=== PATIENT | female | born 1995 | race Hispanic/Latino ===

== ENCOUNTER 2019-04-30 10:50 | Emergency (ER) | payer OTHER ==
--- NOTE | 2019-04-30 12:07 | EDM.PDOC ---
ED HPI GENERAL MEDICAL PROBLEM - General Chief Complaint: Skin Complaint Stated Complaint: SORE ON MOUTH Time Seen by Provider: 04/30/19 12:07 Source of Information: Reports: Patient History Limitations: Reports: No Limitations - History of Present Illness INITIAL COMMENTS - FREE TEXT/NARRATIVE: HISTORY AND PHYSICAL: History of present illness: Patient is a 24-year-old female presents to the ED with complaint of rash on her mouth. Patient states that she developed the rash 2 weeks ago, started out as small cracks at the corners of her mouth. She states in the past week the rash on the right corner of her mouth has worsened and she has developed swelling to the right lower jaw. She reports pain in to her teeth on the right lower mouth. She denies fevers, chills, nausea, vomiting. Review of systems: As per history of present illness and below otherwise all systems reviewed and negative. Past medical history: As per history of present illness and as reviewed below otherwise noncontributory. Surgical history: As per history of present illness and as reviewed below otherwise noncontributory. Social history: No reported history of drug or alcohol abuse. Family history: As per history of present illness and as reviewed below otherwise noncontributory. Physical exam: General: Patient sitting comfortably in no acute distress and nontoxic appearing HEENT: Dry fissures to the angles of the mouth. There is honey crusted colored rash to the right side of the mouth. Slight swelling to the right lower jaw. Pain to percussion of the right lower teeth without obvious abscess. Atraumatic , normocephalic, pupils reactive, negative for conjunctival pallor or scleral icterus, mucous membranes moist, throat clear, neck supple, nontender, trachea midline. No meningeal signs. Lungs: Clear to auscultation, breath sounds equal bilaterally, chest nontender. Heart: S1S2, regular, negative for clicks, rubs, or overt murmur. Abdomen: Soft, nondistended, nontender. Negative for masses or hepatosplenomegaly. Negative for costovertebral tenderness. No rigidity, rebound , guarding. Pelvis: Stable nontender. Genitourinary: Deferred. Rectal: Deferred. Extremities: Atraumatic, negative for cords or calf pain. Neurovascular unremarkable. Neuro: Awake, alert, oriented. Cranial nerves II through XII unremarkable. Cerebellum unremarkable. Motor and sensory unremarkable throughout. Exam nonfocal. Notes: Diagnostics: none Therapeutics: none Prescriptions: Clindamycin Impression: Impetigo, dentalgia Plan: Take antibiotic and use topical ointment as instructed Alternate Tylenol myself and as needed Follow up with primary care provider Return to ED as needed as discussed Definitive disposition and diagnosis as appropriate pending reevaluation and review of above. right mouth Pain Score (Numeric/FACES): 7 - Related Data Allergies Allergy/AdvReac Type Severity Reaction Status Date / Time No Known Allergies Allergy Verified 04/30/19 12:03 Home Meds: Home Meds Clindamycin HCl 300 mg PO QID 7 Days #28 capsule 04/30/19 [Rx] Mupirocin Oint [Bactroban Oint] 22 gm TOP TID #1 tube 04/30/19 [Rx] Past Medical History - Past Health History Medical/Surgical History: Denies Medical/Surgical History [employer] History: Reports: Social & Family History - Family History Family Medical History: Noncontributory - Tobacco Use Smoking Status *Q: Light Tobacco Smoker Years of Tobacco use: 0 Packs/Tins Daily: 0 - Recreational Drug Use Recreational Drug Use: No ED ROS GENERAL - Review of Systems Review Of Systems: Comprehensive ROS is negative, except as noted in HPI. ED EXAM, SKIN/RASH Exam: See Below (see dictation) Course - Vital Signs Last Recorded V/S: Last Vital Signs Temp Pulse 69 04/30/19 12:00 Resp 16 04/30/19 12:00 BP 149/89 H 04/30/19 12:00 Pulse Ox 99 04/30/19 12:00 Departure - Departure Time of Disposition: 12:12 Disposition: Home, Self-Care 01 Condition: Good Clinical Impression: Impetigo, Dentalgia - Discharge Information Prescriptions: Clindamycin HCl 300 mg PO QID 7 Days #28 capsule Mupirocin Oint [Bactroban Oint] 22 gm TOP TID #1 tube Instructions: Impetigo, Pediatric Referrals: PCP,None [Primary Care Provider] - Forms: ED Department Discharge Additional Instructions: The following information is given to patients seen in the emergency department who are being discharged to home. This information is to outline your options for follow-up care. We provide all patients seen in our emergency department with a follow-up referral. The need for follow-up, as well as the timing and circumstances, are variable depending upon the specifics of your emergency department visit. If you don't have a primary care physician on staff, we will provide you with a referral. We always advise you to contact your personal physician following an emergency department visit to inform them of the circumstance of the visit and for follow-up with them and/or the need for any referrals to a consulting specialist. The emergency department will also refer you to a specialist when appropriate. This referral assures that you have the opportunity for follow-up care with a specialist. All of these measure are taken in an effort to provide you with optimal care, which includes your follow-up. Under all circumstances we always encourage you to contact your private physician who remains a resource for coordinating your care. When calling for follow-up care, please make the office aware that this follow-up is from your recent emergency room visit. If for any reason you are refused follow-up, please contact the [facility] Emergency Department at and asked to speak to the emergency department charge nurse. [facility] [address] [place] [id number] [place] [address] Take antibiotic and use topical ointment as instructed Alternate Tylenol myself and as needed Follow up with primary care provider Return to ED as needed as discussed Sepsis Event Note - Evaluation Sepsis Screening Result: No Definite Risk - Focused Exam Vital Signs: Vital Signs Pulse Resp BP Pulse Ox 04/30/19 12:00 69 16 149/89 H 99 Date Exam was Performed: 04/30/19 Time Exam was Performed: 12:31
== END 2019-04-30 12:25 | disposition home or self-care (01) ==
LOC: MW.ED 10:50
DX: L01.00 Impetigo, unspecified (principal); K08.89 Other specified disorders of teeth and supporting structures; F17.210 Nicotine dependence, cigarettes, uncomplicated
CPT/HCPCS: 99282; 99283

== ENCOUNTER 2022-10-24 13:29 | Emergency (ER) | payer OTHER ==
[2022-10-24] MEDS ORDERED: Ondansetron 4 MG/2 ML SDV IVPUSH ONE (14:32)
[2022-10-24] MEDS ORDERED: Lactated Ringers 1,000 ML IV SCH ×2 (14:45→15:30)
[2022-10-24 15:04] LABS: BASOPHILS PERCENT AUTO 0.2 % (0.0-1.5); EOSINOPHILS PERCENT AUTO 0.4 % (0.0-7.0); HEMATOCRIT 44.6 % (36.0-46.0); HEMOGLOBIN 15.7 g/dL (12.0-16.0); LYMPHOCYTES ABSOLUTE AUTO 2.9 K/uL (0.6-2.4); LYMPHOCYTES PERCENT AUTO 31.7 % (16.0-40.0); MEAN CORPUSCULAR HEMOGLOBIN 30.7 pg (27.0-32.0); MEAN CORPUSCULAR HGB CONC 35.2 g/dL (31.0-37.0); MEAN CORPUSCULAR VOLUME 87.3 fL (80.0-98.0); MONOCYTES ABSOLUTE AUTO 0.5 K/uL (0.0-0.8); MONOCYTES PERCENT AUTO 5.2 % (0.0-15.0); NEUTROPHILS ABSOLUTE AUTO 5.7 K/uL (1.4-5.7); NEUTROPHILS PERCENT AUTO 62.5 % (48.0-80.0); NRBC ABSOLUTE 0 K/uL; PLATELET COUNT,PLT 251 K/uL (150-400); RED BLOOD CELL COUNT 5.11 M/uL (4.30-5.90); WHITE BLOOD CELL COUNT,WBC 9.09 K/uL (4.0-11.0)
[2022-10-24 15:05] LABS: APPEARANCE,URINE CLEAR; BILIRUBIN,URINE NEGATIVE (NEGATIVE); COLOR,URINE YELLOW; GLUCOSE,URINE NEGATIVE (NEGATIVE); KETONES,URINE 40 mg/dL (NEGATIVE); LEUKOCYTE ESTERASE,URINE NEGATIVE (NEGATIVE); NITRITE,URINE NEGATIVE (NEGATIVE); OCCULT BLOOD,URINE NEGATIVE (NEGATIVE); PROTEIN,URINE NEGATIVE (NEGATIVE); UROBILINOGEN,URINE 0.2 EU/dL (<2.0)
[2022-10-24] MEDS ORDERED: Lactated Ringers 1,000 ML IV ONE (15:30)
[2022-10-24 15:46] LABS: ALBUMIN 4.1 g/dL (3.4-5.0); BILIRUBIN TOTAL 0.8 mg/dL (0.2-1.0); CARBON DIOXIDE,CO2 23.5 mmol/L (21.0-32.0); CREATININE 0.7 mg/dL (0.6-1.0); EST CRCL DRUG DOSING (CG) 85.18 mL/min; MAGNESIUM 1.8 mg/dL (1.8-2.4); POTASSIUM,K 3.2 mmol/L (3.5-5.1); PROTEIN TOTAL,TP 8.2 g/dL (6.4-8.2)
[2022-10-24] MEDS ORDERED: Potassium Chloride 20 MEQ in Premix Bag 1 BAG IV ONE (15:59)
[2022-10-24] MEDS ORDERED: Potassium Chloride 10 MEQ in Premix Bag 1 BAG IV ONE (16:00)
[2022-10-24] MEDS ORDERED: Ondansetron 4 MG Tab PO ONE (18:38)
== END 2022-10-24 19:18 | disposition home or self-care (01) ==
LOC: MW.ED 13:29
DX: O21.9 Vomiting of pregnancy, unspecified (principal); Z20.822 Contact with and (suspected) exposure to COVID-19; Z3A.01 Less than 8 weeks gestation of pregnancy
CPT/HCPCS: 36415; 76817; 80053; 81003; 83690; 83735; 84702; 85025; 86850; 86900; 86901; 87635; 96361; 96365; 96366; 96375; 99284; A9270; J2405; J3480; J7120; U0002

== ENCOUNTER 2023-05-20 21:34 | Inpatient (IN) | payer BC ==
[2023-05-20 22:31] LABS: APPEARANCE,URINE CLEAR; BILIRUBIN,URINE NEGATIVE (NEGATIVE); COLOR,URINE YELLOW; GLUCOSE,URINE NEGATIVE (NEGATIVE); KETONES,URINE NEGATIVE (NEGATIVE); LEUKOCYTE ESTERASE,URINE NEGATIVE (NEGATIVE); NITRITE,URINE NEGATIVE (NEGATIVE); OCCULT BLOOD,URINE NEGATIVE (NEGATIVE); PROTEIN,URINE NEGATIVE (NEGATIVE); UROBILINOGEN,URINE 0.2 EU/dL (<2.0)
[2023-05-20 22:53] LABS: BASOPHILS ABSOLUTE AUTO 0.03 K/uL (0.00-0.20); BASOPHILS PERCENT AUTO 0.3 % (0.0-1.0); EOSINOPHILS ABSOLUTE AUTO 0.09 K/uL (0.00-0.45); EOSINOPHILS PERCENT AUTO 0.8 % (0.0-6.0); HEMATOCRIT 38.8 % (37.0-47.0); HEMOGLOBIN 13.8 g/dL (12.0-16.0); IMMATURE GRAN ABSOLUTE AUTO 0.06 K/uL (0.00-0.05); IMMATURE GRAN PERCENT AUTO 0.6 % (0.0-0.4); LYMPHOCYTES ABSOLUTE AUTO 3.05 K/uL (1.00-4.80); LYMPHOCYTES PERCENT AUTO 28.2 % (24.0-44.0); MEAN CORPUSCULAR HEMOGLOBIN 31.2 pg (28.0-32.0); MEAN CORPUSCULAR HGB CONC 35.6 g/dL (32.0-36.0); MEAN CORPUSCULAR VOLUME 87.8 fL (83.0-99.0); MONOCYTES ABSOLUTE AUTO 0.49 K/uL (0.00-0.80); MONOCYTES PERCENT AUTO 4.5 % (0.0-8.0); NEUTROPHILS ABSOLUTE AUTO 7.09 K/uL (1.80-7.70); NEUTROPHILS PERCENT AUTO 65.6 % (41.0-71.0); PLATELET COUNT,PLT 181 K/uL (150-400); RED BLOOD CELL COUNT 4.42 M/uL (4.10-5.30); WHITE BLOOD CELL COUNT,WBC 10.81 K/uL (3.9-11.3)
[2023-05-20 22:53] LABS: CREATININE,URINE RAND 43.9 mg/dL; PROTEIN CREATININE RATIO,URINE 0.3; PROTEIN,URINE RANDOM 12.7 mg/dL (<11.9)
[2023-05-20 23:39] LABS: A/G RATIO 0.7 (0.9-1.6); ALBUMIN 2.7 g/dL (3.4-5.0); BILIRUBIN TOTAL 0.4 mg/dL (0.2-1.0); CALCIUM 8.6 mg/dL (8.5-10.1); CARBON DIOXIDE,CO2 23.7 mmol/L (21.0-32.0); CREATININE 0.7 mg/dL (0.6-1.0); EST CRCL DRUG DOSING (CG) 84.41 mL/min; POTASSIUM,K 3.9 mmol/L (3.5-5.1); PROTEIN TOTAL,TP 6.8 g/dL (6.4-8.2)
[2023-05-21] MEDS ORDERED: Nalbuphine 10 MG/0.5 ML Syringe IVPUSH PRN (00:35)
[2023-05-21] MEDS ORDERED: Sodium Chloride 0.9% 10 ML Syringe FLUSH PRN (00:35)
[2023-05-21] MEDS ORDERED: Water For Irrigation,Sterile 1,000 ML Container IRR PRN (00:35)
[2023-05-21] MEDS ORDERED: Tranexamic Acid IN NACL,ISO-OS 1,000 MG in Premix Bag 1 BAG IV PRN (00:35)
[2023-05-21] MEDS ORDERED: Methylergonovine 0.2 MG/1 ML Amp IM PRN (00:35)
[2023-05-21] MEDS ORDERED: Sodium Chloride 0.9% 20 ML SDV IV PRN (00:35)
[2023-05-21] MEDS ORDERED: Terbutaline 1 MG/ML SDV SUBCUT PRN (00:35)
[2023-05-21] MEDS ORDERED: Misoprostol 200 MCG Tab PO PRN (00:35)
[2023-05-21] MEDS ORDERED: Lidocaine 1% 50 ML MDV INJECT PRN (00:35)
[2023-05-21] MEDS ORDERED: Sodium Chloride 0.9% 2.5 ML Syringe FLUSH PRN (00:35)
[2023-05-21] MEDS ORDERED: Carboprost Tromethamine 250 MCG/1 mL Vial IM PRN (00:35)
[2023-05-21] MEDS ORDERED: Oxytocin/0.9 % Sodium Chloride 30 UNIT/500 ML BAG IV SCH (00:45)
[2023-05-21] MEDS: Lactated Ringers 1,000 ML IV SCH ×2 (01:09→02:11)
[2023-05-21] MEDS: Magnesium Sulfate/Water 4 GM/100 ML BAG IV ONE (01:17)
[2023-05-21] MEDS: Ondansetron 4 MG/2 ML SDV IVPUSH PRN (01:24)
[2023-05-21] MEDS: Magnesium Sulfate/Water 20 GM/500 ML BAG IV SCH (01:49)
[2023-05-21] MEDS: Oxytocin/0.9 % Sodium Chloride 30 UNIT/500 ML BAG IV SCH (02:15)
[2023-05-21] MEDS: Ropivacaine HCl/PF 200 ML ONE (02:56)
[2023-05-21] MEDS ORDERED: Ropivacaine HCl/PF 400 MG in Premix Bag 1 BAG EPIDUR SCH (03:15)
[2023-05-21] MEDS ORDERED: ePHEDrine 50 MG/ML SDV IVPUSH PRN ×2 (03:15)
[2023-05-21] MEDS ORDERED: Phenylephrine HCl 0.5 MG/5 ML AMP IVPUSH PRN (03:15)
[2023-05-21 10:04] LABS: PH,UMBILICAL ARTERIAL 7.191 (7.18-7.38); PH,UMBILICAL VENOUS 7.236 (7.25-7.45)
[2023-05-21] MEDS: Calcium Carbonate 500 MG Tab.Chew PO ONE (11:14)
[2023-05-21] MEDS: dexmedeTOMIDine HCl 200 MCG/2 ML SDV ONE (11:15)
[2023-05-21] MEDS: Phenylephrine HCl 0.5 MG/5 ML AMP ONE (11:15)
[2023-05-21] MEDS: Acetaminophen 500 MG Tab PO PRN (11:16)
[2023-05-21] MEDS: Witch Hazel Medicated Pads 40/Jar TOP PRN (11:17)
[2023-05-21] MEDS: Benzocaine/Menthol 20%-0.5% Spray 78 GM Cannister TOP PRN (11:17)
[2023-05-21] MEDS: Ibuprofen 800 MG Tab PO PRN (14:36)
[2023-05-21] MEDS: Simethicone 80 MG Tab.Chew PO PRN (19:05)
[2023-05-21] MEDS: Docusate Sodium 100 MG Cap PO PRN (19:05)
[2023-05-21] MEDS: Lanolin 100% Cream 7 GM Tube TOP PRN (19:06)
[2023-05-21] MEDS: hydrOXYzine Pamoate 25 MG Cap PO PRN (22:57)
[2023-05-22 02:46] LABS: BASOPHILS ABSOLUTE AUTO 0.02 K/uL (0.00-0.20); BASOPHILS PERCENT AUTO 0.2 % (0.0-1.0); EOSINOPHILS ABSOLUTE AUTO 0.07 K/uL (0.00-0.45); EOSINOPHILS PERCENT AUTO 0.6 % (0.0-6.0); HEMATOCRIT 36.1 % (37.0-47.0); HEMOGLOBIN 12.7 g/dL (12.0-16.0); IMMATURE GRAN ABSOLUTE AUTO 0.05 K/uL (0.00-0.05); IMMATURE GRAN PERCENT AUTO 0.4 % (0.0-0.4); LYMPHOCYTES ABSOLUTE AUTO 3.34 K/uL (1.00-4.80); LYMPHOCYTES PERCENT AUTO 29.8 % (24.0-44.0); MEAN CORPUSCULAR HGB CONC 35.2 g/dL (32.0-36.0); MEAN PLATELET VOLUME 11.1 fL (9.4-12.3); MONOCYTES ABSOLUTE AUTO 0.43 K/uL (0.00-0.80); MONOCYTES PERCENT AUTO 3.8 % (0.0-8.0); NEUTROPHILS ABSOLUTE AUTO 7.28 K/uL (1.80-7.70); NEUTROPHILS PERCENT AUTO 65.2 % (41.0-71.0); PLATELET COUNT,PLT 157 K/uL (150-400); WHITE BLOOD CELL COUNT,WBC 11.19 K/uL (3.9-11.3)
[2023-05-23] MEDS ORDERED: Lanolin 100% Cream 7 GM Tube TOP PRN (10:32)
[2023-05-23] MEDS ORDERED: Acetaminophen 500 MG Tab PO PRN (10:32)
[2023-05-23] MEDS ORDERED: Benzocaine/Menthol 20%-0.5% Spray 78 GM Cannister TOP PRN (10:32)
[2023-05-23] MEDS ORDERED: Ibuprofen 800 MG Tab PO PRN (10:32)
[2023-05-23] MEDS ORDERED: Witch Hazel Medicated Pads 40/Jar TOP PRN (10:32)
[2023-05-23] MEDS ORDERED: oxyCODONE 5 MG Tab PO PRN (10:32)
[2023-05-23] MEDS ORDERED: Docusate Sodium 100 MG Cap PO PRN (10:32)
== END 2023-05-23 19:30 | disposition home or self-care (01) | DRG 560 ==
LOC: MW.OBCHECK 21:34 → MW.OB 21:35 → OBSVTOIN 05-21 00:36 → MW.OBCHECK 05-21 00:36 → MW.OB 05-21 00:36
PROVIDERS: ADMIT Obstetrics & Gynecology; ATTEND Obstetrics & Gynecology
PROC: 10D07Z6 Extraction of Products of Conception, Vacuum, Via Natural or Artificial Opening (ICD-10-PCS; principal; 2023-05-21)
PROC: 10907ZC Drainage of Amniotic Fluid, Therapeutic from Products of Conception, Via Natural or Artificial Opening (ICD-10-PCS; 2023-05-21)
PROC: 3E033VJ Introduction of Other Hormone into Peripheral Vein, Percutaneous Approach (ICD-10-PCS; 2023-05-21)
PROC: 3E0P7VZ Introduction of Hormone into Female Reproductive, Via Natural or Artificial Opening (ICD-10-PCS; 2023-05-21)
PROC: 3E0R3BZ Introduction of Anesthetic Agent into Spinal Canal, Percutaneous Approach (ICD-10-PCS; 2023-05-21)
PROC: 00HU33Z Insertion of Infusion Device into Spinal Canal, Percutaneous Approach (ICD-10-PCS; 2023-05-21)
DX: O14.14 Severe pre-eclampsia complicating childbirth (principal); Z37.0 Single live birth; O99.344 Other mental disorders complicating childbirth; F41.9 Anxiety disorder, unspecified; O76 Abnormality in fetal heart rate and rhythm complicating labor and delivery; Z86.16 Personal history of COVID-19; Z3A.37 37 weeks gestation of pregnancy
CPT/HCPCS: 01967; 36415; 51702; 59025; 59409; 80053; 81003; 82570; 82803; 83735; 84156; 85025; 86592; 86850; 86900; 86901; A9270-GY; J2371; J2405; J2590; J2795; J3475; J3490; J7120

== ENCOUNTER 2024-09-08 16:24 | Emergency (ER) | payer BC ==
[2024-09-08] MEDS: Sodium Chloride 0.9% 1,000 ML IV ONE (18:13)
[2024-09-08] MEDS: Ondansetron 4 MG/2 ML SDV IVPUSH ONE (18:14)
[2024-09-08] MEDS: Ketorolac 30 MG/ML SDV IVPUSH ONE (18:14)
[2024-09-08 18:15] LABS: BASOPHILS ABSOLUTE AUTO 0.04 K/uL (0.00-0.20); BASOPHILS PERCENT AUTO 0.3 % (0.0-1.0); EOSINOPHILS ABSOLUTE AUTO 0.17 K/uL (0.00-0.45); EOSINOPHILS PERCENT AUTO 1.4 % (0.0-6.0); HEMATOCRIT 44.4 % (37.0-47.0); HEMOGLOBIN 15.7 g/dL (12.0-16.0); IMMATURE GRAN ABSOLUTE AUTO 0.03 K/uL (0.00-0.05); IMMATURE GRAN PERCENT AUTO 0.2 % (0.0-0.4); LYMPHOCYTES ABSOLUTE AUTO 2.61 K/uL (1.00-4.80); LYMPHOCYTES PERCENT AUTO 21.6 % (24.0-44.0); MEAN CORPUSCULAR HEMOGLOBIN 30.2 pg (28.0-32.0); MEAN CORPUSCULAR HGB CONC 35.4 g/dL (32.0-36.0); MEAN CORPUSCULAR VOLUME 85.4 fL (83.0-99.0); MEAN PLATELET VOLUME 10.6 fL (9.4-12.3); MONOCYTES ABSOLUTE AUTO 0.43 K/uL (0.00-0.80); MONOCYTES PERCENT AUTO 3.6 % (0.0-8.0); NEUTROPHILS ABSOLUTE AUTO 8.82 K/uL (1.80-7.70); NEUTROPHILS PERCENT AUTO 72.9 % (41.0-71.0); PLATELET COUNT,PLT 266 K/uL (150-400)
[2024-09-08] MEDS: Alum Hydrox/Mag Hydrox/Simeth 15 ML, Lidocaine 2% 5 ML PO ONE (18:17)
[2024-09-08 18:28] LABS: A/G RATIO 1.1 (0.9-1.6); ALBUMIN 4.3 g/dL (3.4-5.0); CALCIUM 9.2 mg/dL (8.5-10.1); CARBON DIOXIDE,CO2 26.9 mmol/L (21.0-32.0); CREATININE 0.9 mg/dL (0.6-1.0); EST CRCL DRUG DOSING (CG) 65.05 mL/min; MAGNESIUM 1.9 mg/dL (1.8-2.4); POTASSIUM,K 3.5 mmol/L (3.5-5.1); PROTEIN TOTAL,TP 8.2 g/dL (6.4-8.2)
[2024-09-08 19:04] LABS: LACTIC ACID 1.7 mmol/L (0.4-2.0)
== END 2024-09-08 19:44 | disposition home or self-care (01) ==
LOC: MW.ED 16:24
DX: R10.9 Unspecified abdominal pain (principal); R11.10 Vomiting, unspecified; Z75.3 Unavailability and inaccessibility of health-care facilities; Z79.899 Other long term (current) drug therapy
CPT/HCPCS: 36415; 80053; 83605; 83690; 83735; 85025; 96361; 96374; 96375; 99284; A9270; J1885; J2405; J7030; 99283